=== PATIENT | male | born 1965 | race Caucasian/White ===

== ENCOUNTER 2018-09-10 00:38 | Day surgery (SDC) | payer BC ==
[~2018-09-10] VITALS: Ht 175.3 cm; Wt 99.8 kg
[~2018-09-10 00:38] MED LIST: LOR75 PO; NO RTN MEDS; ONDA4TAB PO; TAM4 PO
[2018-09-10] MEDS ORDERED: ceFAZolin(*) 2GM/D5W 50ML 50 ML IVPB ONE (07:00)
[2018-09-10] MEDS ORDERED: FAMOTIDINE(*) 20MG/50ML PREMIX 50 ML IVPB ONE (10:51)
[2018-09-10] MEDS ORDERED: FAMOTIDINE 20 MG TAB PO ONE (11:05)
[2018-09-10] MEDS ORDERED: MIDAZOLAM 2 MG/2 ML VIAL IVP PRN (11:05)
[2018-09-10] MEDS ORDERED: NORMOSOL R SOLN(*) 1000 ML BAG 1,000 ML IV PRN (11:05)
[2018-09-10] MEDS ORDERED: LIDOCAINE/SOD BICARB 8.4% SYR ID ONE (11:05)
[2018-09-10 11:08] VITALS: BP 127/86
[2018-09-10 11:17] LABS: PLATELET COUNT, AUTOMATED 223 K/uL (150-450)
[2018-09-10] MEDS ORDERED: BUPIVACAINE/EPI 0.5% 50ML VIAL INFIL ONE (11:19)
[2018-09-10] MEDS ORDERED: fentaNYL CITR 100 MCG/2 ML AMP ONE (11:36)
[2018-09-10] MEDS ORDERED: DEXAMETHASONE SOD PHOS 10MG/ML ONE (11:36)
[2018-09-10] MEDS ORDERED: PROPOFOL EMUL(*) 10MG/ML 20 ML 20 ML ONE (11:36)
[2018-09-10] MEDS ORDERED: ONDANSETRON 4 MG/2 ML VIAL ONE (11:36)
[2018-09-10] MEDS ORDERED: KETOROLAC 30 MG/ML VIAL ONE (12:15)
[2018-09-10] MEDS ORDERED: HYDR-654 PO (12:54)
--- NOTE | 2018-09-10 12:59 | Short(Outpt) Discharge Summary ---
Discharge Summary Reason for Hosp/Final Diag: (1) Umbilical hernia Hospital Course & Plan: pt presented for umbilical hernia repair. he tolerated the procedure well and will be discharged home when criteria met. Departure Discharge to: Home Discharge Instructions Home Meds Active Scripts Hydrocodone Bit/Acetaminophen (NORCO 7.5-325 TABLET) 1 Each Tablet, 1 EACH PO Q4H PRN for PAIN, #20 TAB Prov:LAN COLLAZO 09/10/18 Discontinued Reported Medications Tamsulosin Hcl (Flomax) 0.4 Mg Cap, 0.4 MG PO QDAY, 0 Refills 09/07/10 Acetaminophen/Hydrocodone (Lortab 7.5/500) 7.5 Mg/500 Mg Tab, 1 TAB PO Q4-6H PRN, #15 0 Refills 09/07/10 Ondansetron (Zofran Odt) 4 Mg/Udtablet Tab.rapdis, 4 MG PO Q6-8H PRN, #10 0 Refills 09/07/10 [No Rtn Meds] No Conflict Check, 0 Refills 09/07/10 Activity: No Heavy Lifting Special Instructions: no lifting more than 20 lbs for 6 wks. ok to remove dressing and shower in 2 days. take stool softener while taking pain meds. f/u dr. daniel collazo 2 wks. LAN COLLAZO Sep 10, 2018 12:59
--- NOTE | 2018-09-10 13:04 | Post Operative Progress Note ---
Post Operative Progress Note Date: Sep 10, 2018 Time: 12:56 Surgeon: dr. daniel collazo [id number] Spa Host: none Anesthesia: gen, local dr. briones Pre-Op Diagnosis: umb hernia Post-Op Diagnosis: same Procedure(s): open umb hernia repair with mesh Specimen Removed:(May be N/A): partial omentum Complications: none Estimated Blood Loss: minimal Date OP Note Dictated: Sep 10, 2018 Time OP Note Dictated: 12:57 LAN COLLAZO Sep 10, 2018 13:04
--- NOTE | 2018-09-10 13:26 | OPERATIVE REPORT 1 ---
EVENT DATE: September 10, 2018 SURGEON: Gregg Acosta MD ANESTHESIOLOGIST: Elliott Shirley MD ANESTHESIA: General and local. MOLD INSERT CHANGER: None. PREOPERATIVE DIAGNOSIS Umbilical hernia. POSTOPERATIVE DIAGNOSIS Umbilical hernia. PROCEDURE PERFORMED 1. Open umbilical hernia repair with mesh. 2. Partial omentectomy. FLUIDS IV Crystalloid. ESTIMATED BLOOD LOSS Minimal. SPECIMENS Partial omentum. COMPLICATIONS None. INDICATIONS This is a 52-year-old male with an umbilical hernia for a long time. Recently it has become more painful and nonreducible. PHYSICAL EXAM The patient has incarcerated contents in his umbilical hernia. His abdomen is soft. He is stable. Risk and benefits of the procedure explained and consent was signed. DESCRIPTION OF PROCEDURE The patient was taken to the operating room and placed in the supine position. General anesthesia was administered per the Anesthesia team. The patient prepped and draped in the normal sterile fashion. Local analgesia was injected into the dermis and a curved incision was made above the umbilicus. Dissection was carried down through the subcutaneous tissue with electrocautery to the fascia. Blunt dissection was performed around the umbilical stump and the umbilical stump was carefully taken off of the tenuated fascia. The hernia sac was opened. There was indurated nonreducible omental contents. This was divided with cautery. Hemostasis was assured. The remainder of the omentum was pushed back through the hernia defect. The preperitoneal space was developed. The hernia sac was closed with a running 3-0 Vicryl stitch. The area anterior to the fascia was cleared of subcutaneous tissue for approximately 1 cm. A 4.3 cm Proceed ventral patch was placed through the umbilical defect and made to lie flat. It was secured through the limbs with Prolene stitch and the limbs were then trimmed. The fascial defect was closed with a running 0 Prolene stitch. The umbilical stump was secured to the fascia with a 3-0 Vicryl stitch. Deep dermal 3-0 stitch was used to approximate the edges of the wound and a running 4-0 Monocryl subcuticular stitch was used to close the skin. Local analgesia was injected throughout the closure. Appropriate dressings were applied. The patient tolerated the procedure well. There were no complications. [facility]
[2018-09-10 13:30] VITALS: BP 122/75
[2018-09-10] MEDS ORDERED: SUGAMMADEX SOD 200 MG/2 ML SDV ONE (13:44)
[2018-09-10 14:00] VITALS: BP 116/76
--- NOTE | 2018-09-10 14:28 | NUR ---
[id number] SBAR REPORT WAS RECEIVED FROM Myrna ZARAGOZA. PATIENT ARRIVED ON ROOM AIR. HE STATES HIS PAIN IS 2/10. SURGICAL DRESSING REMAINS DRY AND INTACT. SEE ADMISSION ASSESSMENT [id number] PATIENT BEGAN EATING AND DRINKING AND HE IS TOLERATING THIS WELL.
[2018-09-10 14:30] VITALS: BP 118/74
[2018-09-10 14:50] VITALS: BP 116/73
[2018-09-10 14:52] VITALS: BP 115/79
--- NOTE | 2018-09-10 15:00 | NUR ---
1450 PATIENT BEGAN DOING ORTHOSTATICS. HE DENIES ANY DIZZINESS OR LIGHTHEADEDNESS 1452 PATIENT BEGAN STANDING AND WAS STABLE ON HIS FEET 1453 PATIENT BEGAN GETTING DRESSED. 1455 IV WAS DC'D BY MEGAN LOWE 1500 PATIENT WAS AMBULATORY ON DISCHARGE. HE STATES HIS PAIN IS 2/10. DRESSING REMAINS DRY AND INTACT. SEE DC ASSESSMENT.
[2018-09-18] MEDS ORDERED: SULF-198 PO (14:44)
== END 2018-09-10 13:30 | disposition home or self-care (01) ==
LOC: OR 00:38
PROVIDERS: ATTEND Surgery
DX: K42.9 Umbilical hernia without obstruction or gangrene (principal)
CPT/HCPCS: 49585; 85025; 88305; C1781; J1100; J1885; J2250; J2405; J2704; J3010; J0690